=== PATIENT | female | born 1980 | race Two or more races ===

== ENCOUNTER 2020-02-10 08:54 | Outpatient (REF) | payer OTHER, SELFPAY ==
[2020-02-10 09:24] LABS: COVID-19 Test Negative (Negative)
== END 2020-02-10 08:55 | disposition home or self-care (01) ==
LOC: HO.LAB 08:54
PROVIDERS: Visit Provider Internal Medicine
DX: Z20.828 Contact with and (suspected) exposure to other viral communicable diseases (principal)
CPT/HCPCS: 87635

== ENCOUNTER 2020-03-31 08:03 | Outpatient (REF) | payer OTHER, SELFPAY ==
[2020-03-31 08:21] LABS: COVID-19 Test Negative (Negative)
== END 2020-03-31 08:04 | disposition home or self-care (01) ==
LOC: HO.EMPCOV 08:03
PROVIDERS: Visit Provider Internal Medicine
DX: Z20.828 Contact with and (suspected) exposure to other viral communicable diseases (principal)
CPT/HCPCS: 87635; C9803